=== PATIENT | male | born 1965 | race Two or more races ===

== ENCOUNTER 2020-09-16 13:57 | Emergency (ER) | payer MEDICAID ==
[~2020-09-16] VITALS: Ht 160 cm; Wt 56.7 kg
--- NOTE | 2020-09-16 14:25 | NUR ---
bib self c/o worsening chest pain x 3 days. vs checked. stable. hooked on monitor. iv access atrted blood draw done. sent to lab.
[2020-09-16] MEDS ORDERED: ASPIRIN 81 MG TAB.CHEW PO ONE (15:00)
[2020-09-16] MEDS ORDERED: ASPIRIN 81 MG TAB.CHEW ONE (15:09)
--- NOTE | 2020-09-16 15:20 | NUR ---
xray by vijay
[2020-09-16 15:33] LABS: BASOPHILS % (AUTO) 0.1 % (0.0-2.0); HEMATOCRIT 46 % (39-51); HEMOGLOBIN 15.1 g/dL (13.5-17.5); LYMPHOCYTES # (AUTO) 1.7 /CMM (0.8-4.8); LYMPHOCYTES % (AUTO) 21.6 % (20.0-44.0); MEAN CORPUSCULAR HGB CONC 33 g/dl (31.0-36.0); MEAN CORPUSCULAR VOLUME 89 fL (80-96); MONOCYTES # (AUTO) 0.5 /CMM (0.1-1.30); MONOCYTES % (AUTO) 6.8 % (2.0-12.0); NEUTROPHILS # (AUTO) 5.6 /CMM (1.8-8.9); NEUTROPHILS % (AUTO) 71.5 % (43.0-81.0); PLATELET COUNT (AUTO) 296 /CMM (150-450); RED BLOOD CELL COUNT(AUTO) 5.11 MIL/uL (4.5-6.0); WHITE BLOOD COUNT (AUTO) 7.9 K/uL (4.3-11.0)
[2020-09-16 15:53] LABS: CREATININE 0.8 mg/dL (0.6-1.3)
--- NOTE | 2020-09-16 16:22 | NUR ---
Patient discharged to home in stable condition. Written and verbal after care instructions given. Patient verbalizes understanding of instruction. IV removed. Catheter intact and site benign. Pressure and 4x4 applied to site. No bleeding noted.
[2020-09-16 16:23] VITALS: BP 133/82
== END 2020-09-16 16:23 | disposition home or self-care (01) ==
LOC: ER 14:07
DX: R07.89 Other chest pain (principal)
CPT/HCPCS: 36415; 71045-TC; 80048-TC; 84484-TC; 85025-TC